=== PATIENT | male | born 1940 | race African-American/Black ===

== ENCOUNTER 2024-04-01 01:19 | Emergency (ER) | payer OTHER ==
[~2024-04-01] VITALS: Ht 182.9 cm; Wt 89.9 kg
[2024-04-01] MEDS ORDERED: NORVASC10 MG PO (02:06)
[2024-04-01] MEDS ORDERED: OMEPRAZOLE20 MG PO (02:06)
[2024-04-01] MEDS ORDERED: LINZESS290 MCG PO (02:06)
[2024-04-01] MEDS ORDERED: SYNTHROID100 MCG PO (02:07)
[2024-04-01 02:11] LABS: BASOPHILS 0.5 % (0-2); EOSINOPHILS 1.9 % (0-6); HEMATOCRIT 42.9 % (35.0-50.0); HEMOGLOBIN 14.9 g/dL (12.0-18.0); LYMPHOCYTES 25.6 % (24-44); MCHC 34.7 g/dl (30-36); MCV 92.2 fl (81-99); MONOCYTES 12.6 % (0-12); NEUTROPHILS 59.4 % (39-80); PLATELET COUNT 228 K/uL (140-440); RBC 4.65 M/ul (4.3-5.7)
[2024-04-01 02:20] LABS: ALBUMIN/GLOBULIN RATIO 0.95 (1.1-2.4); ANION GAP 11.5 (7-21); BILIRUBIN, TOTAL 0.4 ng/dL (0.2-1.0); BUN/CREATININE RATIO 18.69 (6.0-28.6); CALCIUM 9.3 mg/dL (8.5-10.1); CREATININE, SERUM 1.07 mg/dL (0.70-1.30); POTASSIUM 3.5 mmol/L (3.5-5.1); PROTEIN, TOTAL 8.2 g/dL (6.4-8.2)
[2024-04-01 03:19] LABS: BILIRUBIN, URINE NEGATIVE (negative); BLOOD/HGB, URINE NEGATIVE (Negative); KETONE, URINE NEGATIVE (Negative); LEUK ESTERASE, URINE NEGATIVE (negative); NITRITE, URINE NEGATIVE (negative)
[2024-04-01 04:13] VITALS: BP 143/85
== END 2024-04-01 04:14 | disposition home or self-care (01) ==
LOC: ED 01:19
PROVIDERS: Emergency Medicine
DX: R10.84 Generalized abdominal pain (principal); G89.29 Other chronic pain; Z79.890 Hormone replacement therapy; Z79.899 Other long term (current) drug therapy
CPT/HCPCS: 36415; 74177; 80053; 81003; 83690; 85025; 99284-25; Q9967

== ENCOUNTER 2024-04-10 15:45 | Emergency (ER) | payer OTHER ==
[~2024-04-10] VITALS: Ht 182.9 cm; Wt 91.1 kg
[~2024-04-10 15:45] MED LIST: LINZESS290 MCG PO; NORVASC10 MG PO; OMEPRAZOLE20 MG PO; SYNTHROID100 MCG PO
--- OUTSIDE RECORDS SUMMARY | 2024-04-10 15:52 | XMS ---
PreManage Notification: GIOVANNA QUAN Security Panama Hat Smearer Events No recent Security Events currently on file CRITERIA MET - 6 ED Visits in 6 Months - [facility] - 2 Visits in 30 Days CARE PROVIDERS MEAGHAN RAMIREZ Napping Machine Operator 06/24/2022-Current PHONE: [phone] Addie Funez Nurse Practitioner: Current COUNTER HOP-C PHONE: Unknown Stephen has no Care Guidelines for this patient. EGerald VISIT COUNT (12 MO.) [address] [place] [address] TOTAL 11 NOTE: Visits indicate total known visits. ED/UCC VISIT TRACKING (12 MO.) 04/10/2024 15:46 [facility] [place] TYPE: Emergency COMPLAINT: - ALTERED LOC 04/02/2024 13:[address] [facility] [address] [facility] [place] TYPE: Emergency COMPLAINT: - MEDICATION REFILL 04/01/2024 01:21 [facility] [place] TYPE: Emergency COMPLAINT: - ABD PAIN DIAGNOSES: - Generalized abdominal pain - Hormone replacement therapy - Other chronic pain - Other adjunct faculty for medical terminology (current) drug therapy 02/17/2024 08:33 [facility] [place] TYPE: Emergency DIAGNOSES: - Diverticulitis of intestine, part unspecified, without perforation or abscess without bleeding - Food poisoning 12/24/2023 18:22 [facility] [place] TYPE: Emergency DIAGNOSES: - Anesthesia of skin - FACIAL NUMBNESS 11/12/2023 16:28 [facility] [place] TYPE: Emergency DIAGNOSES: - Constipation, unspecified - constipation 11/11/2023 07:57 [facility] [place] TYPE: Emergency DIAGNOSES: - Low back pain, unspecified - BACK PAIN 09/19/2023 15:19 [facility] [place] TYPE: Emergency DIAGNOSES: - Constipation, unspecified - Diverticulitis of intestine, part unspecified, without perforation or abscess without bleeding - BLOOD IN URINE 07/20/2023 17:15 [facility] [place] TYPE: Emergency DIAGNOSES: - Diverticulitis of intestine, part unspecified, without perforation or abscess without bleeding - Abdominal Pain 05/06/2023 12:39 [facility] [place] TYPE: Emergency DIAGNOSES: - Gastrointestinal hemorrhage, unspecified - ABD PAIN 04/28/2023 23:44 [facility] [facility] [place] TYPE: Emergency DIAGNOSES: - Generalized abdominal pain - Abdomnial Pain INPATIENT VISIT TRACKING (12 MO.) No inpatient visits to display in this time frame [email or web address]
[2024-04-10 16:35] LABS: BASOPHILS 0.7 % (0-2); EOSINOPHILS 0.7 % (0-6); HEMATOCRIT 43.5 % (35.0-50.0); HEMOGLOBIN 14.9 g/dL (12.0-18.0); LYMPHOCYTES 12.3 % (24-44); MCH 31.8 (27-36); MCHC 34.2 g/dl (30-36); MONOCYTES 10.3 % (0-12); PLATELET COUNT 234 K/uL (140-440); RBC 4.68 M/ul (4.3-5.7); RDW 13.9 (10.5-15.0)
[2024-04-10 16:46] LABS: INR 1.18 (0.80-1.30); PROTIME 14.6 Sec (11.2-14.2)
[2024-04-10 16:48] LABS: PARTIAL THROMBOPLASTIN TIME 26.9 Sec (22.9-41.3)
[2024-04-10 16:59] LABS: ALBUMIN 3.9 g/dL (3.4-5.0); ALBUMIN/GLOBULIN RATIO 0.98 (1.1-2.4); ANION GAP 13.9 (7-21); BILIRUBIN, TOTAL 0.4 ng/dL (0.2-1.0); BUN/CREATININE RATIO 18.54 (6.0-28.6); CALCIUM 9.4 mg/dL (8.5-10.1); CREATININE, SERUM 1.24 mg/dL (0.70-1.30); POTASSIUM 3.9 mmol/L (3.5-5.1); PROTEIN, TOTAL 7.9 g/dL (6.4-8.2)
[2024-04-10 17:01] LABS: MAGNESIUM 1.8 mg/dL (1.8-2.4); TSH, 3RD GENERATION 0.468 uIU/mL (0.358-3.740)
[2024-04-10 17:23] LABS: BILIRUBIN, URINE NEGATIVE (negative); BLOOD/HGB, URINE NEGATIVE (Negative); KETONE, URINE NEGATIVE (Negative); LEUK ESTERASE, URINE NEGATIVE (negative); NITRITE, URINE NEGATIVE (negative)
[2024-04-10 17:27] LABS: INFLUENZA B NAA NEGATIVE (NEGATIVE); RESPIRATORY SYNCYTIAL VIR NAA NEGATIVE (NEGATIVE)
[2024-04-10 17:39] LABS: AMPHETAMINES, URINE NEGATIVE (NEGATIVE); BARBITURATES, URINE NEGATIVE (NEGATIVE); BENZODIAZEPINE, URINE NEGATIVE (NEGATIVE); BUPRENORPHINE, URINE NEGATIVE (NEGATIVE); CANNABINOID, URINE NEGATIVE (NEGATIVE); COCAINE, URINE NEGATIVE (NEGATIVE); ECSTASY, URINE NEGATIVE (NEGATIVE); FENTANYL, URINE NEGATIVE (NEGATIVE); METHADONE, URINE NEGATIVE (NEGATIVE); OPIATES, URINE NEGATIVE (NEGATIVE); OXYCODONE, URINE NEGATIVE (NEGATIVE); PHENCYCLIDINE, URINE NEGATIVE (NEGATIVE)
[2024-04-10 18:18] VITALS: BP 108/75
--- NOTE | 2024-04-11 21:41 | EKG ---
[facility] [address] [facility] [place] [address] Signed Normal sinus rhythm Left anterior fascicular block Minimal voltage criteria for LVH, may be normal variant ( [place] product ) Abnormal ECG No previous ECGs available Confirmed by Mahin Demarco MD ([id number]) on 04/11/2024 9:41:11 PM Electronically Signed By: MAHIN DEMARCO DO 04/11/242140 PATIENT NAME: GIOVANNA QUAN Electrocardiogram DATE OF : 42 PHYSICIAN: MAHIN DEMARCO DO REPORT #: [id number] REPORT IS CONFIDENTIAL AND NOT TO BE RELEASED WITHOUT AUTHORIZATION
== END 2024-04-10 18:23 | disposition home or self-care (01) ==
LOC: ED 15:45
PROVIDERS: Emergency Medicine
DX: R40.4 Transient alteration of awareness (principal); Z91.010 Allergy to peanuts; Z79.890 Hormone replacement therapy; Z79.899 Other long term (current) drug therapy
CPT/HCPCS: 36415; 70450; 71045; 80053; 80307; 81003; 82140; 83735; 84443; 84484; 85025; 85610; 85730; 87502; 93005; 93010; 99285-25; G0480; U0002

== ENCOUNTER 2024-04-25 18:38 | Emergency (ER) | payer OTHER ==
[~2024-04-25] VITALS: Ht 182.9 cm; Wt 90.6 kg
--- OUTSIDE RECORDS SUMMARY | 2024-04-25 18:45 | XMS ---
PreManage Notification: GIOVANNA QUAN Security Field Advisor Events No recent Security Events currently on file CRITERIA MET - 6 ED Visits in 6 Months - [facility] - 2 Visits in 30 Days CARE PROVIDERS MEAGHAN RAMIREZ Manager Foreign 06/24/2022-Current PHONE: [phone] Addie Funez Nurse Practitioner: Current LANDSCAPE CREW LEADER-C PHONE: Unknown Stephen has no Care Guidelines for this patient. EGerald VISIT COUNT ([address] MO[address] [place] [address] TOTAL 12 NOTE: Visits indicate total known visits. ED/UCC VISIT TRACKING (12 MO.) 04/25/2024 18:[address] [facility] [place] TYPE: Emergency COMPLAINT: - ABDOMINAL PAIN 04/10/2024 15:46 [facility] [place] TYPE: Emergency COMPLAINT: - ALTERED LOC DIAGNOSES: - Allergy to peanuts - Hormone replacement therapy - Other shelter (current) drug therapy - Transient alteration of awareness 04/02/2024 13:49 [facility] [place] [facility] [place] TYPE: Emergency COMPLAINT: - MEDICATION REFILL 04/01/2024 01:21 [facility] [place] TYPE: Emergency COMPLAINT: - ABD PAIN DIAGNOSES: - Generalized abdominal pain - Hormone replacement therapy - Other chronic pain - Other shelter (current) drug therapy 02/17/2024 08:33 [facility] [place] TYPE: Emergency DIAGNOSES: - Diverticulitis of intestine, part unspecified, without perforation or abscess without bleeding - Food poisoning 12/24/2023 18:22 [facility] [place] TYPE: Emergency DIAGNOSES: - Anesthesia of skin - FACIAL NUMBNESS 11/12/2023 16:28 [facility] [place] TYPE: Emergency DIAGNOSES: - Constipation, unspecified - constipation 11/11/2023 07:57 [facility] [place] TYPE: Emergency DIAGNOSES: - Low back pain, unspecified - BACK PAIN 09/19/2023 15:19 [facility] [place] TYPE: Emergency DIAGNOSES: - Constipation, unspecified - Diverticulitis of intestine, part unspecified, without perforation or abscess without bleeding - BLOOD IN URINE 07/20/2023 17:15 [facility] [place] TYPE: Emergency DIAGNOSES: - Diverticulitis of intestine, part unspecified, without perforation or abscess without bleeding - Abdominal Pain 05/06/2023 12:39 [facility] [place] TYPE: Emergency DIAGNOSES: - Gastrointestinal hemorrhage, unspecified - ABD PAIN 04/28/2023 23:44 [facility] [place] TYPE: Emergency DIAGNOSES: - Generalized abdominal pain - Abdomnial Pain INPATIENT VISIT TRACKING (12 MO.) No inpatient visits to display in this time frame [id number]
[2024-04-25] MEDS ORDERED: LACTULOSE 20 GM/30 ML CUP PO ONE (19:45)
[2024-04-25] MEDS ORDERED: LACTULOSE10 GM/15 M PO ×2 (20:00→20:36)
[2024-04-25] MEDS ORDERED: LINZESS290 MCG PO ×2 (20:08→20:36)
[2024-04-25 20:32] VITALS: BP 132/85
== END 2024-04-25 20:32 | disposition home or self-care (01) ==
LOC: ED 18:38
DX: K59.00 Constipation, unspecified (principal); Z91.010 Allergy to peanuts; Z79.890 Hormone replacement therapy; Z79.899 Other long term (current) drug therapy
CPT/HCPCS: 74018; 99283

== ENCOUNTER 2024-04-27 16:55 | Emergency (ER) | payer OTHER ==
[~2024-04-27] VITALS: Ht 182.9 cm; Wt 89.8 kg
[~2024-04-27 16:55] MED LIST changes: +LACTULOSE10 GM/15 M PO
--- OUTSIDE RECORDS SUMMARY | 2024-04-27 16:57 | XMS ---
PreManage Notification: GIOVANNA QUAN Security Lime Mixer Tender Events No recent Security Events currently on file CRITERIA MET - 6 ED Visits in 6 Months - [facility] - 2 Visits in 30 Days CARE PROVIDERS MEAGHAN RAMIREZ Forest Management Teacher 06/24/2022-Current PHONE: [phone] Addie Funez Nurse Practitioner: Current DEVULCANIZER HEAD-C PHONE: Unknown Stephen has no Care Guidelines for this patient. EGerald VISIT COUNT (12 MO.) [address] [place] [address] TOTAL 13 NOTE: Visits indicate total known visits. ED/UCC VISIT TRACKING (12 MO.) 04/27/2024 16:55 [facility] [place] TYPE: Emergency COMPLAINT: - STROKE SYMPTOMS 04/25/2024 18:39 [facility] [place] TYPE: Emergency COMPLAINT: - ABDOMINAL PAIN 04/10/2024 15:46 [facility] [place] TYPE: Emergency COMPLAINT: - ALTERED LOC DIAGNOSES: - Allergy to peanuts - Hormone replacement therapy - Other exterminator helper termite (current) drug therapy - Transient alteration of awareness 04/02/2024 13:49 [facility] [place] TYPE: Emergency COMPLAINT: - MEDICATION REFILL 04/01/2024 01:21 [facility] [place] TYPE: Emergency COMPLAINT: - ABD PAIN DIAGNOSES: - Generalized abdominal pain - Hormone replacement therapy - Other chronic pain - Other exterminator helper termite (current) drug therapy 02/17/2024 08:33 [facility] [place] TYPE: Emergency DIAGNOSES: - Diverticulitis of intestine, part unspecified, without perforation or abscess without bleeding - Food poisoning 12/24/2023 18:22 [facility] [place] TYPE: Emergency DIAGNOSES: - Anesthesia of skin - FACIAL NUMBNESS 11/12/2023 16:28 [facility] [place] TYPE: Emergency DIAGNOSES: - Constipation, unspecified - constipation 11/11/2023 07:57 [facility] [place] TYPE: Emergency DIAGNOSES: - Low back pain, unspecified - BACK PAIN 09/19/2023 15:19 [facility] [place] TYPE: Emergency DIAGNOSES: - Constipation, unspecified - Diverticulitis of intestine, part unspecified, without perforation or abscess without bleeding - BLOOD IN URINE 07/20/2023 17:15 [facility] [place] TYPE: Emergency DIAGNOSES: - Diverticulitis of intestine, part unspecified, without perforation or abscess without bleeding - Abdominal Pain 05/06/2023 12:39 [facility] [place] TYPE: Emergency DIAGNOSES: - Gastrointestinal hemorrhage, unspecified - ABD PAIN 04/28/2023 23:44 [facility] [place] TYPE: Emergency DIAGNOSES: - Generalized abdominal pain - Abdomnial Pain INPATIENT VISIT TRACKING (12 MO.) No inpatient visits to display in this time frame [email or web address]
[2024-04-27 17:07] LABS: BASOPHILS 0.6 % (0-2); EOSINOPHILS 0.6 % (0-6); HEMATOCRIT 31.1 % (35.0-50.0); LYMPHOCYTES 18.7 % (24-44); MCH 32.6 (27-36); MCHC 35.3 g/dl (30-36); MCV 92.4 fl (81-99); MONOCYTES 12.8 % (0-12); NEUTROPHILS 67.3 % (39-80); PLATELET COUNT 253 K/uL (140-440); RBC 3.37 M/ul (4.3-5.7); RDW 14.3 (10.5-15.0)
[2024-04-27 17:19] LABS: PARTIAL THROMBOPLASTIN TIME 24.4 Sec (22.9-41.3)
[2024-04-27 17:20] LABS: INR 1.28 (0.80-1.30); PROTIME 15.2 Sec (11.2-14.2)
[2024-04-27 17:31] LABS: ALBUMIN 3.6 g/dL (3.4-5.0); ALBUMIN/GLOBULIN RATIO 1.09 (1.1-2.4); ANION GAP 12.8 (7-21); BILIRUBIN, TOTAL 0.3 ng/dL (0.2-1.0); BUN/CREATININE RATIO 15.38 (6.0-28.6); CALCIUM 8.8 mg/dL (8.5-10.1); CREATININE, SERUM 1.3 mg/dL (0.70-1.30); POTASSIUM 3.8 mmol/L (3.5-5.1); PROTEIN, TOTAL 6.9 g/dL (6.4-8.2)
[2024-04-27] MEDS ORDERED: ASPIRIN 81 MG CHEW PO ONE (18:00)
[2024-04-27] MEDS ORDERED: CLOPIDOGREL BISULFATE 75 MG TAB PO ONE (18:00)
[2024-04-27] MEDS ORDERED: SODIUM CHLORIDE 0.9% 1,000 ML IV PRN (18:15)
[2024-04-27 21:46] VITALS: BP 101/69
--- NOTE | 2024-04-27 22:01 | EKG ---
[facility] [address] [facility] [place] [address] Signed Sinus rhythm with premature atrial complexes Incomplete right bundle branch block Left anterior fascicular block Abnormal ECG When compared with ECG of 10-APR-2024 16:20, premature atrial complexes are now present Confirmed by Agapito Garrett MD () on 04/27/2024 10:01:46 PM Electronically Signed By: AGAPITO GARRETT MD 04/27/242200 PATIENT NAME: GIOVANNA QUAN Electrocardiogram DATE OF : 42 PHYSICIAN: AGAPITO GARRETT MD REPORT #: [id number] REPORT IS CONFIDENTIAL AND NOT TO BE RELEASED WITHOUT AUTHORIZATION
== END 2024-04-27 21:46 | disposition short-term general hospital (02) ==
LOC: ED 16:55
PROVIDERS: Emergency Medicine
DX: R09.89 Other specified symptoms and signs involving the circulatory and respiratory systems (principal); R41.0 Disorientation, unspecified; Z91.010 Allergy to peanuts; Z79.899 Other long term (current) drug therapy; Z79.890 Hormone replacement therapy
CPT/HCPCS: 36415; 70450; 70496; 70498; 71045; 80053; 84484; 85025; 85610; 85730; 93005; 93010; 96360; 99285-25; A9270; J7030; Q9967

== ENCOUNTER 2024-06-26 05:57 | Emergency (ER) | payer OTHER ==
[~2024-06-26] VITALS: Ht 182.9 cm; Wt 88.0 kg
--- OUTSIDE RECORDS SUMMARY | 2024-06-26 06:00 | XMS ---
PreManage Notification: GIOVANNA QUAN Security Epic Willow Analyst Events No recent Security Events currently on file CRITERIA MET - 6 ED Visits in 6 Months CARE PROVIDERS MEAGHAN RAMIREZ Tag And Label Cutter 06/24/2022-Current PHONE: [phone] Addie Funez Nurse Practitioner: Family Current PARK INTERPRETER-C PHONE: Unknown Stephen has no Care Guidelines for this patient. Ang VISIT COUNT (12 MO.) [address] [place] [place] TOTAL 13 NOTE: Visits indicate total known visits. ED/UCC VISIT TRACKING (12 MO.) 06/26/2024 05:58 [facility] Emergency COMPLAINT: - FALL 04/27/2024 23:[facility] TYPE: Emergency COMPLAINT: - EMS-tx/TIA DIAGNOSES: - Anemia, unspecified - Cerebral infarction, unspecified - TIA - Transfer/ TIA 04/27/2024 16:55 [facility] [place] TYPE: Emergency COMPLAINT: - STROKE SYMPTOMS DIAGNOSES: - Allergy to peanuts - Disorientation, unspecified - Facial weakness - Hormone replacement therapy - Other long goods drier (current) drug therapy - Other specified symptoms and signs involving the circulatory and respiratory systems 04/25/2024 18:39 [facility] [place] TYPE: Emergency COMPLAINT: - ABDOMINAL PAIN DIAGNOSES: - Allergy to peanuts - Constipation, unspecified - Hormone replacement therapy - Other senior living (current) drug therapy [facility]10[facility]2024 [facility] [place] [facility] COMPLAINT: - ALTERED LOC DIAGNOSES: - Allergy to peanuts - Hormone replacement therapy - Other senior living (current) drug therapy - Transient alteration of awareness 04/02/2024 13:49 [facility] [place] [facility] [place] TYPE: Emergency COMPLAINT: - MEDICATION REFILL 04/01/2024 01:21 [facility] [place] TYPE: Emergency COMPLAINT: - ABD PAIN DIAGNOSES: - Generalized abdominal pain - Hormone replacement therapy - Other chronic pain - Other senior living (current) drug therapy 02/17/2024 08:33 [facility] [place] TYPE: Emergency DIAGNOSES: - Diverticulitis of intestine, part unspecified, without perforation or abscess without bleeding - Food poisoning 12/24/2023 18:22 [facility] [place] TYPE: Emergency DIAGNOSES: - Anesthesia of skin - FACIAL NUMBNESS 11/12/2023 16:28 [facility] [place] TYPE: Emergency DIAGNOSES: - Constipation, unspecified - constipation 11/11/2023 07:57 [facility] [place] TYPE: Emergency DIAGNOSES: - Low back pain, unspecified - BACK PAIN 09/19/2023 15:19 [facility] [place] TYPE: Emergency DIAGNOSES: - Constipation, unspecified - Diverticulitis of intestine, part unspecified, without perforation or abscess without bleeding - BLOOD IN URINE 07/20/2023 17:15 [facility] [place] TYPE: Emergency DIAGNOSES: - Diverticulitis of intestine, part unspecified, without perforation or abscess without bleeding - Abdominal Pain INPATIENT VISIT TRACKING (12 MO.) 04/28/2024 02:20 [facility] TYPE: General Medicine COMPLAINT: - EMS-tx/TIA DIAGNOSES: - Anemia, unspecified - Cerebral infarction, unspecified - Gastrointestinal hemorrhage, unspecified - Hemorrhage of anus and rectum - Iron deficiency anemia secondary to blood loss (chronic) - Other fecal abnormalities [email or web address]
[2024-06-26 06:32] LABS: BASOPHILS 0.4 % (0-2); HEMATOCRIT 37.3 % (35.0-50.0); HEMOGLOBIN 12.4 g/dL (12.0-18.0); LYMPHOCYTES 15.1 % (24-44); MCH 27.7 (27-36); MCHC 33.1 g/dl (30-36); MCV 83.7 fl (81-99); MONOCYTES 14.3 % (0-12); NEUTROPHILS 68.2 % (39-80); PLATELET COUNT 305 K/uL (140-440); RBC 4.46 M/ul (4.3-5.7); RDW 17.4 (10.5-15.0)
[2024-06-26 06:47] LABS: ALBUMIN 3.5 g/dL (3.4-5.0); ALBUMIN/GLOBULIN RATIO 0.73 (1.1-2.4); ALCOHOL, MEDICAL <3 ng/dL (<3); ALKALINE PHOSPHATASE 89 U/L (46-116); ALT (SGPT) 10 U/L (14-59); AST (SGOT) 11 U/L (15-37); BILIRUBIN, TOTAL 0.3 ng/dL (0.2-1.0); BUN/CREATININE RATIO 19.31 (6.0-28.6); CALCIUM 9.5 mg/dL (8.5-10.1); CARBON DIOXIDE 26 mmol/L (21-32); CHLORIDE 103 mmol/L (98-107); CREATININE, SERUM 0.88 mg/dL (0.70-1.30); GLOMERULAR FILTRATION RATE,EST 86 mL/min (>60); PROTEIN, TOTAL 8.3 g/dL (6.4-8.2); UREA NITROGEN 17 mg/dL (7-18)
[2024-06-26 06:56] LABS: BILIRUBIN, URINE NEGATIVE (negative); BLOOD/HGB, URINE NEGATIVE (Negative); KETONE, URINE NEGATIVE (Negative); LEUK ESTERASE, URINE NEGATIVE (negative); NITRITE, URINE NEGATIVE (negative)
[2024-06-26 07:17] LABS: AMPHETAMINES, URINE NEGATIVE (NEGATIVE); BARBITURATES, URINE NEGATIVE (NEGATIVE); BENZODIAZEPINE, URINE NEGATIVE (NEGATIVE); BUPRENORPHINE, URINE NEGATIVE (NEGATIVE); CANNABINOID, URINE NEGATIVE (NEGATIVE); COCAINE, URINE NEGATIVE (NEGATIVE); ECSTASY, URINE NEGATIVE (NEGATIVE); FENTANYL, URINE NEGATIVE (NEGATIVE); METHADONE, URINE NEGATIVE (NEGATIVE); OPIATES, URINE NEGATIVE (NEGATIVE); OXYCODONE, URINE NEGATIVE (NEGATIVE); PHENCYCLIDINE, URINE NEGATIVE (NEGATIVE)
[2024-06-26 08:31] VITALS: BP 176/92
== END 2024-06-26 08:33 | disposition home or self-care (01) ==
LOC: ED 05:57
PROVIDERS: Internal Medicine
DX: S00.31XA Abrasion of nose, initial encounter (principal); S00.511A Abrasion of lip, initial encounter; I10 Essential (primary) hypertension; Z91.010 Allergy to peanuts; Z79.890 Hormone replacement therapy; Z79.899 Other long term (current) drug therapy; W01.0XXA Fall on same level from slipping, tripping and stumbling without subsequent striking against object, initial encounter
CPT/HCPCS: 36415; 70450; 70486; 71250; 72125; 80053; 80307; 81003; 83690; 85025; 99284-25; G0480

== ENCOUNTER 2025-04-20 11:31 | Emergency (ER) | payer MEDICARE, OTHER ==
[~2025-04-20] VITALS: Ht 185.4 cm; Wt 88.1 kg
[2025-04-20 12:57] LABS: BASOPHILS 0.3 % (0.2-1.2); EOSINOPHILS 1.6 % (0.8-7.0); LYMPHOCYTES 25.5 % (21.8-53.1); MCH 25.5 PG (25.7-32.2); MCHC 31.5 g/dL (32.3-36.5); MCV 80.7 fL (79.0-92.2); MONOCYTES 16.4 % (5.3-12.2); NEUTROPHILS 55.9 % (34.0-67.9); RBC 4.83 M/uL (4.63-6.08)
[2025-04-20 13:04] LABS: BLOOD/HGB, URINE NEGATIVE (Negative); KETONE, URINE NEGATIVE (Negative); LEUK ESTERASE, URINE NEGATIVE (negative); NITRITE, URINE NEGATIVE (negative)
[2025-04-20 13:15] LABS: ALT (SGPT) 20.0 U/L (14-59); AST (SGOT) 14.0 U/L (15-37); GLOMERULAR FILTRATION RATE,EST 64.0 mL/min (>60); PROTEIN, TOTAL 8.2 g/dL (6.4-8.2); UREA NITROGEN 19.0 mg/dL (7-18)
[2025-04-20 13:23] LABS: INFLUENZA B NAA NEGATIVE (NEGATIVE); RESPIRATORY SYNCYTIAL VIR NAA NEGATIVE (NEGATIVE)
[2025-04-20 14:06] VITALS: BP 147/91
== END 2025-04-20 14:07 | disposition home or self-care (01) ==
LOC: ED 11:31
PROVIDERS: Emergency Medicine
DX: R53.1 Weakness (principal); I10 Essential (primary) hypertension; Z91.010 Allergy to peanuts
CPT/HCPCS: 36415; 71045; 80053; 81003; 84484; 85025; 87502; 99284-25; U0002